=== PATIENT | male | born 1955 | race Caucasian/White ===

== ENCOUNTER 2016-07-31 20:27 | Emergency (ER) | payer OTHER | END 2016-08-01 00:44 | disposition home or self-care (01) | LOC: ER 20:27 | DX: I80.01 Phlebitis and thrombophlebitis of superficial vessels of right lower extremity (principal); I83.91 Asymptomatic varicose veins of right lower extremity | CPT/HCPCS: 36415; 80053; 85025; 85610; 93971 ==